=== PATIENT | male | born 1985 | race African-American/Black ===

== ENCOUNTER 2023-07-13 09:00 | Emergency (ER) | payer MEDICAID ==
[~2023-07-13] VITALS: Ht 175.3 cm; Wt 81.6 kg
[2023-07-13 09:08] VITALS: BP 131/80; PULSE 110; RESP 18; TEMP 99.2; O2SAT 98
[2023-07-13 10:16] VITALS: BP 131/80; PULSE 110; RESP 18; TEMP 99.2; O2SAT 98
== END 2023-07-13 10:48 | disposition left against medical advice (07) ==
LOC: MED 09:00
DX: R07.0 Pain in throat (principal); Z53.21 Procedure and treatment not carried out due to patient leaving prior to being seen by health care provider
CPT/HCPCS: 99281